=== PATIENT | female | born 1970 | race Hispanic/Latino ===

== ENCOUNTER 2018-11-21 15:09 | Emergency (ER) | payer OTHER ==
[~2018-11-21 15:09] MED LIST: DOXY-252 PO; LISI10TA7 PO; LORA0.5T2 PO; SULF1TAB42 PO; TYL3 PO
[2018-11-21] MEDS ORDERED: KETOROLAC TROMETHAMINE 60 MG/2 ML VIAL ONE (15:39)
[2018-11-21] MEDS ORDERED: ORPHENADRINE CITRATE 30 MG/ML ML ONE (15:39)
== END 2018-11-21 16:29 | disposition home or self-care (01) ==
LOC: EDH 15:09
DX: M54.2 Cervicalgia (principal); R07.89 Other chest pain; I10 Essential (primary) hypertension; Z88.8 Allergy status to other drugs, medicaments and biological substances
CPT/HCPCS: 93005; 96372 ×2; 99284; J1885; J2360